=== PATIENT | female | born 2000 | race African-American/Black ===

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

== ENCOUNTER 2018-09-28 19:51 | Emergency (ER) | payer SELFPAY ==
[~2018-09-28] VITALS: Ht 160 cm; Wt 82.9 kg
[2018-09-28 20:44] VITALS: BP 118/60
== END 2018-09-28 23:08 | disposition home or self-care (01) ==
LOC: ER 19:51
DX: H69.81 Other specified disorders of Eustachian tube, right ear (principal); F12.10 Cannabis abuse, uncomplicated
CPT/HCPCS: 99282

== ENCOUNTER 2019-07-29 17:15 | Emergency (ER) | payer MEDICAID ==
[~2019-07-29] VITALS: Ht 162.6 cm; Wt 79.0 kg
[2019-07-29 17:32] VITALS: BP 121/70
[2019-07-29] MEDS ORDERED: CEFTRIAXONE SODIUM 250 MG/VIAL IM ONE (19:15)
== END 2019-07-29 21:00 | disposition home or self-care (01) ==
LOC: ER 17:15
DX: B00.1 Herpesviral vesicular dermatitis (principal); J02.9 Acute pharyngitis, unspecified
CPT/HCPCS: 96372; 99283; J0696; Z7610

== ENCOUNTER 2019-07-31 12:19 | Emergency (ER) | payer MEDICAID ==
[~2019-07-31] VITALS: Ht 172.7 cm; Wt 90.0 kg
[2019-07-31 12:46] VITALS: BP 125/71
== END 2019-07-31 13:43 | disposition home or self-care (01) ==
LOC: ER 12:19
DX: J02.9 Acute pharyngitis, unspecified (principal); B00.1 Herpesviral vesicular dermatitis; J35.1 Hypertrophy of tonsils; L53.9 Erythematous condition, unspecified
CPT/HCPCS: 81025; 99283